=== PATIENT | female | born 1960 | race American Indian/Alaskan Native ===

== ENCOUNTER 2019-02-21 18:24 | Emergency (ER) | payer MEDICAID ==
[2019-02-21] MEDS ORDERED: IBUPROFEN PO ONE (21:39)
[2019-02-21] MEDS ORDERED: ZOFRAN ODT PO ONE (21:39)
[2019-02-21] MEDS ORDERED: PERCOCET 5/325 PO ONE (21:39)
--- NOTE | 2019-02-21 21:46 | Emergency Department Report ---
ED Fall HPI - General Chief Complaint: Fall Stated Complaint: FALL/BODY PAIN Time Seen by Provider: 02/21/19 21:30 Source: patient Mode of arrival: Ambulatory Limitations: No Limitations - History of Present Illness Initial Comments: Patient is a 59-year-old -[place] female with a history of hypertension and [id number] diabetes who presents to the ED with complaint of acute onset persistent severe low back pain and left upper arm pain after she slipped on a wet floor in a grocery store and fell down landing on her back 36 hours ago. The patient states that she has been using "home remedies" for pain with no relief. Patient states that the pain has worsened in the last 8 hours this patient needed any active range of motion. Patient denies head or neck injuries, syncope, seizures, chest pain, shortness of breath, abdominal pain, hematuria, numbness and tingling or weakness of her lower and upper extremities bilaterally, urinary or bowel incontinence, saddle paresthesia or loss of consciousness. MD Complaint: fall, other (Lower back pain; left upper arm pain) -: Sudden, hour(s) (36) Fall From: standing When Fall Occurred: other (about 36 hours ago) Fall Witnessed: yes, by family, yes, by bystander Place Fall Occurred: other (Grocery store) Loss of Consciousness: none Prolonged Down Time?: no Symptoms Prior to Fall: none Location: back, other (left upper arm) Location - Extremities: Left: Arm (left upper arm) Severity: severe Severity scale (0 -10): 7 Quality: sharp, aching Context: tripped/slipped Associated Symptoms: denies. denies: headache, neck pain, numbness, weakness, chest paint, shortness of breath, abdominal pain, hematuria, unable to walk, lightheaded, vertigo, confusion - Related Data Previous Rx's Medication Instructions Recorded Last Taken Type tiZANidine [Zanaflex 4mg TAB] 4 mg PO Q8H PRN #15 tablet 02/21/19 Unknown Rx traMADol [Ultram] 50 mg PO Q6HR PRN #15 tablet 02/21/19 Unknown Rx Allergies Allergy/AdvReac Type Severity Reaction Status Date / Time Sulfa (Sulfonamide Allergy Rash Verified 02/21/19 18:27 Antibiotics) ED Review of Systems ROS: Stated complaint: FALL/BODY PAIN Other details as noted in HPI Constitutional: denies: chills, fever Eyes: denies: eye pain, eye discharge, vision change ENT: denies: ear pain, throat pain Respiratory: denies: cough, shortness of breath, wheezing Cardiovascular: denies: chest pain, palpitations Endocrine: no symptoms reported Gastrointestinal: denies: abdominal pain, nausea, diarrhea Genitourinary: denies: urgency, dysuria, discharge Musculoskeletal: back pain, arthralgia, other (left upper arm). denies: joint swelling Skin: denies: rash, lesions Neurological: denies: headache, weakness, paresthesias Psychiatric: denies: anxiety, depression Hematological/Lymphatic: denies: easy bleeding, easy bruising ED Past Medical Hx - Past Medical History Previous Medical History?: Yes Hx Hypertension: Yes Hx Diabetes: Yes Additional medical history: Sinusitis - Surgical History Past Surgical History?: No - Social History Smoking Status: Never Smoker Substance Use Type: Alcohol, Prescribed - Medications Home Medications: Home Medications Medication Instructions Recorded Confirmed Last Taken Type tiZANidine [Zanaflex 4mg TAB] 4 mg PO Q8H PRN #15 tablet 02/21/19 Unknown Rx traMADol [Ultram] 50 mg PO Q6HR PRN #15 tablet 02/21/19 Unknown Rx ED Physical Exam - General Limitations: No Limitations General appearance: alert, in no apparent distress - Head Head exam: Present: atraumatic, normocephalic, normal inspection - Eye Eye exam: Present: normal appearance, PERRL, EOMI Pupils: Present: normal accommodation - ENT ENT exam: Present: normal exam, normal orophraynx, mucous membranes moist, TM's normal bilaterally, normal external ear exam - Neck Neck exam: Present: normal inspection, full ROM. Absent: tenderness, meningismus, lymphadenopathy, thyromegaly - Respiratory Respiratory exam: Present: normal lung sounds bilaterally. Absent: respiratory distress, wheezes, rales, stridor, chest wall tenderness, accessory muscle use, decreased breath sounds, prolonged expiratory, other - Cardiovascular Cardiovascular Exam: Present: regular rate, normal rhythm, normal heart sounds. Absent: systolic murmur, diastolic murmur, rubs, gallop - GI/Abdominal GI/Abdominal exam: Present: soft, normal bowel sounds. Absent: distended, guarding, rebound, hyperactive bowel sounds, hypoactive bowel sounds, organomegaly, bruit - Rectal Rectal exam: Present: deferred - Extremities Exam Extremities exam: Present: normal inspection, full ROM, tenderness (mild tenderness of left upper arm ), normal capillary refill - Back Exam Back exam: Present: normal inspection, full ROM, tenderness (Palpable lumbosacral paraspinal musculoskeletal tenderness), muscle spasm, paraspinal tenderness - Neurological Exam Neurological exam: Present: alert, oriented X3 - Psychiatric Psychiatric exam: Present: normal affect, normal mood - Skin Skin exam: Present: warm, dry, intact, normal color. Absent: rash ED Course Vital Signs 02/21/19 18:27 Temperature 98.9 F Pulse Rate 80 Respiratory 20 Rate Blood Pressure 127/78 O2 Sat by Pulse 98 Oximetry - Reevaluation(s) Reevaluation #1: 02/21/19 21:47 Patient is alert and oriented 3 and is not in distress with normal vital signs. Patient was treated for pain in the ED and L-spine and CT scan without contrast shows no acute fractures or subluxations but chronic degenerative disc disease. Patient declined pain medications in the ED and was discharged home on muscle relaxants and pain medicines and advised to follow-up with her primary care physician in 5-7 days for reevaluation or return to the ED immediately if symptoms get worse. 02/21/19 22:31 ED Medical Decision Making - Radiology Data Radiology results: report reviewed, [place] [address] Cat Scan Report Signed Patient: PATRICK MAS MR#: [id number] : 1960 Acct:[id number] Age/Sex: 59 / F ADM Date: 02/21/19 Loc: ED Attending Dr: Ordering Physician: JERAD COUCH Date of Service: 02/21/19 Procedure(s): CT lumbar spine wo con Accession Number(s): [id number] cc: JERAD COUCH CT lumbar spine without contrast INDICATION: Fall at [facility] yesterday with generalized low back pain. TECHNIQUE: Axial imaging performed through the lumbar spine without the use of contrast. Sagittal and coronal reconstructed images were also reviewed. All CT scans at this location are performed using CT dose reduction for ALARA by means of automated exposure control. COMPARISON: None FINDINGS: Alignment: Grade 1 anterolisthesis of L4 on L5 likely related to facet arthropathy. Otherwise normal alignment. Bones: There is no acute osseous abnormality. There is mild multilevel discogenic DJD moderate to severe lower lumbar facet arthropathy. There is also moderate DJD in the SI joints. Soft tissues: No acute or significant incidental soft tissue abnormality. IMPRESSION: 1. No acute abnormality. 2. Degenerative changes as above. Signer Name: Henrique Baig MD Signed: 02/21/2019 10:19 PM Workstation Name: [id number] Transcribed By: NU Dictated By: Henrique Baig MD Electronically Authenticated By: Henrique Baig MD Signed Date/Time: 02/21/19 7772 - Medical Decision Making Patient is alert and oriented 3 and is not in distress with normal vital signs. Patient was treated for pain in the ED and L-spine and CT scan without contrast shows no acute fractures or subluxations but chronic degenerative disc disease. Patient declined pain medications in the ED and was discharged home on muscle relaxants and pain medicines and advised to follow-up with her primary care physician in 5-7 days for reevaluation or return to the ED immediately if symptoms get worse. - Differential Diagnosis Muscle spasm of back, lumbar disc herniation; left arm muscle strain Critical care attestation.: If time is entered above; I have spent that time in minutes in the direct care of this critically ill patient, excluding procedure time. ED Disposition Clinical Impression: Spasm of muscle of lower back Muscle strain of left upper arm Qualifiers: Encounter type: initial encounter Qualified Code(s): S46.912A - Strain of unspecified muscle, fascia and tendon at shoulder and upper arm level, left arm, initial encounter Disposition: DC-01 TO HOME OR SELFCARE Is pt being admited?: No Does the pt Need Aspirin: No Condition: Stable Instructions: Muscle Strain (ED), Muscle Spasm (ED), Back Pain (ED) Additional Instructions: Take medications with food, drink plenty of fluids and follow up with your primary care physician in 7-10 days for reevaluation. Return to the ED immediately if symptoms get worse. Prescriptions: traMADol [Ultram] 50 mg PO Q6HR PRN #15 tablet PRN Reason: Pain tiZANidine [Zanaflex 4mg TAB] 4 mg PO Q8H PRN #15 tablet PRN Reason: Spasms Referrals: [facility], [place] [Primary Care Provider] - 3-5 Days Time of Disposition: 21:50 Print Language: ESTONIAN
--- NOTE | 2019-02-21 22:24 | Cat Scan Report ---
CT lumbar spine without contrast INDICATION: Fall at [facility] yesterday with generalized low back pain. TECHNIQUE: Axial imaging performed through the lumbar spine without the use of contrast. Sagittal a nd coronal reconstructed images were also reviewed. All CT scans at this location are performed usin g CT dose reduction for ALARA by means of automated exposure control. COMPARISON: None FINDINGS: Alignment: Grade 1 anterolisthesis of L4 on L5 likely related to facet arthropathy. Otherwise normal alignment. Bones: There is no acute osseous abnormality. There is mild multilevel discogenic DJD moderate to s evere lower lumbar facet arthropathy. There is also moderate DJD in the SI joints. Soft tissues: No acute or significant incidental soft tissue abnormality. IMPRESSION: 1. No acute abnormality. 2. Degenerative changes as above. Signer Name: Henrique Baig MD Signed: 02/21/2019 10:19 PM Workstation Name: [id number]
[2019-02-21 23:27] VITALS: BP 151/98
== END 2019-02-21 23:26 | disposition home or self-care (01) ==
LOC: ED 18:24
DX: S46.912A Strain of unspecified muscle, fascia and tendon at shoulder and upper arm level, left arm, initial encounter (principal); M62.830 Muscle spasm of back; Z88.2 Allergy status to sulfonamides; I10 Essential (primary) hypertension; E11.9 Type 2 diabetes mellitus without complications; Z79.899 Other long term (current) drug therapy; W01.198A Fall on same level from slipping, tripping and stumbling with subsequent striking against other object, initial encounter; Y93.89 Activity, other specified; Y92.512 Supermarket, store or market as the place of occurrence of the external cause; Y99.8 Other external cause status
CPT/HCPCS: 72131; 99283; Q0162